=== PATIENT | male | born 1990 ===

== ENCOUNTER 2022-08-31 14:26 | Outpatient (CLI) | payer MEDICAID, SELFPAY ==
--- NOTE | 2022-08-31 | DI.CT_ITS ---
Exam(s) CT UPPER EXTREMITY LT W EXAM: CT UPPER EXTREMITY LT W CLINICAL HISTORY: S/P CARPAL TUNNEL SURGERY,PAIN,SWELLING,? INFECTION OR FLUID COLLECTION. TECHNIQUE: Imaging Protocol: Axial computed tomography images with coronal and sagittal reformatted images were created and reviewed. CONTRAST MATERIAL: Intravenous: Omnipaque 350. Contrast Volume: 100 ML COMPARISON: No exams were available for comparison FINDINGS: Bones: The osseous structures and articular surfaces are intact. Bony alignment is satisfactory. N o cellulitic or osteomyelitic changes are identified. There is no evidence of joint space narrowing or cystic degeneration seen. No lytic or sclerotic lesions are identified. Soft Tissues: Normal. No focal fluid collection is seen. Enhancement: No abnormal enhancement is identified. No findings to suggest an abscess. IMPRESSION: No bone or joint abnormality is identified. No focal fluid collection is seen to suggest an abscess. RADIATION DOSE DELIVERED: 197.97mGy.cm Total DLP 197.97mGy.cm Total DLP DATA REPOSITORY: All CT scans at this facility are submitted to the National Radiology Data Registry (NRDR) Dose Index Registry (DIR) with the [employer] (ACR). RADIATION OPTIMIZATION: All CT scans at this facility use at least one of these dose optimization te chniques: automated exposure control; mA and/or kV adjustment per patient size (includes targeted exa ms where dose is matched to clinical indication); or iterative reconstruction.
--- OUTSIDE RECORDS SUMMARY | 2022-08-31 14:31 | XMS_ITS | CCD ---
:1990 Author Care Team Providers Name Role Phone JOELLE JOHN Attending Physician Unavailable RADHA HARPER Er Physician 1 Unavailable JUS Burciaga Registered Nurse Unavailable Vital Signs Vital Sign Value Unit Date/Time Recent/Initial? BMI (Body Mass Index) 26.7 kg/m^2 01/05/2022 16:27 In itial VS Weight Measured 180.78 lbs 01/05/2022 16:27 Initial VS Height 69 in 01/05/2022 16:27 Initial VS BSA (Body Surface Area) 2 m^2 01/05/2022 16:27 Initial VS BP Systolic 124 mmHg 01/05/2022 16:27 Initial VS BP Diastolic 82 mmHg 01/05/2022 16:27 Initial VS Respiratory Rate 20 bpm 01/05/2022 16:27 Initial VS Heart Rate 84 bpm 01/05/2022 16:27 Initial VS O2 % BldC Oximetry 95 % 01/05/2022 16:27 Initi al VS Body Temperature 36.6 degrees 01/05/2022 16:27 Initial VS Allergies Allergy Code Allergy Type Reaction Status No Known Drug Allergies 0 No known drug allergies Active Procedures Unknown or Not Available. History of Immunizations Unknown or Not Available. Problems Problem Code Start Date Resolved Date Status Blood in stool 396091252 Active Results Unknown or Not Available. Active Medications Medications Administered During Visit Medication Dose Units Frequency Route Date/Time of L ast Dose LIDOCAINE VISCOUS 2% 15ML UD 30 ML X1 PO 01/05/2022 16:49 Encounters Encounter Diagnosis Diagnosis Code Start Date Periapical abscess without sinus K047 022 Social History Smoking Status Code Start Date End Date Never smoker [id number] Patient Decision Aids Unknown or Not Available. Discharge Instructions You were admitted to [facility] on 01/05/2022 16:22 with a principal diagnosis of Periapical abscess without sinus You were discharged from [facility] on 01/05/2022 17:00 Should you have any questions prior to d ischarge, please contact a member of your healthcare team. If you have left the ho spital and have any questions, please contact your primary care physician. Chief Complaint and Reason For Visit Chief Complaint Date of Onset DENTAL PAIN Function Status Unknown or Not Available. Plan of Care Unknown or Not Available. Referral/Transition of Care Unknown or Not Available.
--- OUTSIDE RECORDS SUMMARY | 2022-08-31 14:31 | XMS_ITS | CCD ---
:1990 Author Care Team Providers Name Role Phone ATIYA RAMIREZ Attending Physician Unavailable ATIYA RAMIREZ Er Physician 1 Unavailable Unavailable Registered Nurse GALLO Brown Registered Nurse Unavailable Vital Signs Vital Sign Value Unit Date/Time Recent/Initial? BMI (Body Mass Index) 27.98 kg/m^2 01/15/2022 05:57 In itial VS Weight Measured 195 lbs 01/15/2022 05:57 Initial VS Height 70 in 01/15/2022 05:57 Initial VS BSA (Body Surface Area) 2.09 m^2 01/15/2022 05:57 Initial VS BP Systolic 129 mmHg 01/15/2022 05:57 Initial VS BP Diastolic 88 mmHg 01/15/2022 05:57 Initial VS Respiratory Rate 20 bpm 01/15/2022 05:57 Initial VS Heart Rate 74 bpm 01/15/2022 05:57 Initial VS O2 % BldC Oximetry 96 % 01/15/2022 05:57 Initi al VS Body Temperature 35.2 degrees 01/15/2022 05:57 Initial VS BP Systolic 138 mmHg 01/15/2022 08:03 Most Recent VS BP Diastolic 95 mmHg 01/15/2022 08:03 Most Recent VS Respiratory Rate 18 bpm 01/15/2022 08:36 Most Re cent VS Heart Rate 69 bpm 01/15/2022 08:36 Most Recent VS O2 % BldC Oximetry 100 % 01/15/2022 08:36 Most Recent VS Body Temperature 35.6 degrees 01/15/2022 08:36 Most Re cent VS Allergies Allergy Code Allergy Type Reaction Status No Known Drug Allergies 0 No known drug allergies Active Procedures Unknown or Not Available. History of Immunizations Unknown or Not Available. Problems Problem Code Start Date Resolved Date Status Blood in stool [id number] Active Results COMPREHENSIVE METABOLIC PANEL (CMP) - Co llect Date/Time: 01/15/2022 05:55 Test Name Code Test Result Test Units Test Ref Range GLUCOSE 2345-7 119 mg/dL L=70 H=116 BUN 3094-0 11 mg/dL L=6 H=25 CREATININE 2160-0 1.05 mg/dL L=0.67 H=1.17 SODIUM SERUM 2951-2 138 mmol/L L=136 H=145 POTASSIUM SERUM 2823-3 4.0 mmol/L L=3.4 H=5.2 CHLORIDE SERUM 2075-0 102 mmol/L L=96 H=110 CARBON DIOXIDE (CO2) 2028-9 29 mmol/L L=22 H= 34 ANION GAP 35956-8 7.2 mmol/L CALCIUM SERUM 93637-9 8.7 mg/dL L=8.2 H=10.2 BILIRUBIN TOTAL 1975-2 0.4 mg/dL L=0.0 H=1.3 ALK. PHOS. 6768-6 82 U/L L=46 H=116 SGOT (AST) 1920-8 13 U/L L=15 H=37 SGPT (ALT) 1742-6 28 U/L L=12 H=78 TOTAL PROTEIN 2885-2 6.8 gm/dL L=6.0 H=8.0 ALBUMIN 1751-7 3.8 gm/dL L=3.4 H=5.0 AGE 31 years eGFR (non-Afr.Amer.) 91024-2 83 mL/min eGFR (Afr-Spanish) 69650-1 100 mL/min LIPASE* - Collect Date/Time: 01/15/2022 05:55 Test Name Code Test Result Test Units Test Ref Range LIPASE 165 U/L L=73 H=393 CBC W/ DIFFERENTIAL* - Collect Date/Time : 01/15/2022 05:55 Test Name Code Test Result Test Units Test Ref Range WBC 6690-2 13.60 th/cmm L=5.00 H=10.00 NEUT % 81.9 % L=40.0 H=80.0 LYMPH % 9.9 % L=10.0 H=50.0 MONO % 38381-6 5.4 % L=2.0 H=12.0 EOS % 2.0 % L=0.0 H=8.0 BASO % 0.4 % L=0.0 H=3.0 IG % 2514-8 0.4 % L=0.0 H=1.1 NRBC % 19241-3 0.0 % L=0.0 H=0.0 NEUT abs count 751-8 11.2 th/cmm L=1.6 H=8.4 LYMPH abs count 731-0 1.3 th/cmm L=1.5 H=4.0 MONO abs count 742-7 0.7 th/cmm L=0.2 H=1.0 EOS abs count 711-2 0.3 th/cmm L=0.0 H=0.5 BASO abs count 704-7 0.1 th/cmm L=0.0 H=0.2 IG abs count 03047-7 0.1 th/cmm L=0.0 H=0.1 NRBC abs count 59266-3 0.0 mil/cmm L=0.0 H=0.0 RBC 789-8 5.17 mil/cmm L=4.30 H=6.20 HEMOGLOBIN 718-7 15.5 gm/dL L=13.0 H=17.0 HEMATOCRIT 4544-3 46 % L=45 H=52 MCV 787-2 89 fL L=82 H=92 MCH 785-6 30.0 pg L=27.0 H=31.0 MCHC 786-4 33.8 % L=32.0 H=36.0 RDW-SD 788-0 43.0 fL L=39.0 H=49.0 PLATELET COUNT 777-3 199 th/cmm L=150 H=450 URINALYSIS WITH MICRO AND REFLEX CULTUR* - Collect Date/Time: 01/15/2022 08:00 Test Name Code Test Result Test Units Test Ref Range COLLECTION MODE: 25833-3 CLEAN CATCH N/A Color 5778-6 STRAW N/A yellow Appearance 5767-9 CLEAR N/A clear Glucose urine 05332-4 NEGATIVE N/A negative mg/dl Bilirubin 5770-3 NEGATIVE N/A negative Ketones 2514-8 NEGATIVE N/A negative mg/dl Spec gravity 5811-5 1.020 N/A 1.003 - 1.030 pH urine 2756-5 7.0 N/A 5.0 - 7.0 Protein 62249-6 NEGATIVE N/A negative mg/dl Urobilinogen 54840-9 0.2 N/A <or= 1 EU/dl Nitrite. 5802-4 NEGATIVE N/A negative Blood 5794-3 NEGATIVE N/A negative Leukocytes. NEGATIVE N/A negative WBCs. 67320-8 0-5 N/A 0-5 / hpf RBCs none N/A 0-5 / hpf Epith cells none N/A 0-5 / hpf Crystals none N/A none Bacteria none N/A none Mucus none N/A none Casts none N/A none /lpf Active Medications Medications Administered During Visit Medication Dose Units Frequency Route Date/Time of L ast Dose SODIUM CHLORIDE 0.9% 1000ML 1000 ML X1 01/15/2022 06:20 ACETAMINOPHEN INJ IVPB: 1000 MG X1 0 01/15/2022 06:21 1000MG/100ML ONDANSETRON INJ SDV: 4MG/2ML 4 MG X1 IVP 01/15/2022 06:20 KETOROLAC INJ SDV: 30MG/1ML 15 MG X1 IVP 01/15/2022 08:15 Encounters Encounter Diagnosis Diagnosis Code Start Date Noninfective gastroenteritis and colitis, unspecified K529 01/15/2022 Social History Smoking Status Code Start Date End Date Never smoker [id number] Patient Decision Aids Unknown or Not Available. Discharge Instructions You were admitted to [facility] on 01/15/2022 05:49 with a principal diagnosis of Noninfective gastroenteritis and coli tis, unspecified You had the following tests done: URINA LYSIS WITH MICRO AND REFLEX CULTUR* CBC W/ DIFFERENTIAL* COMPREHENSIVE METABOLIC PA MADALYN (CMP) LIPASE* You were discharged from [facility] on 01/15/2022 08:41 Should you have any questions prior to d ischarge, please contact a member of your healthcare team. If you have left the ho spital and have any questions, please contact your primary care physician. Chief Complaint and Reason For Visit Chief Complaint Date of Onset LOWER RIGHT SIDE PAIN VOMITING Function Status Unknown or Not Available. Plan of Care Unknown or Not Available. Referral/Transition of Care Unknown or Not Available.
--- OUTSIDE RECORDS SUMMARY | 2022-08-31 14:31 | XMS_ITS | CCD ---
:1990 Author Care Team Providers Name Role Phone JESSICA BANGURA Attending Physician Unavailable JESSICA BANGURA Er Physician 1 Unavailable INDU James Registered Nurse Unavailable Vital Signs Vital Sign Value Unit Date/Time Recent/Initial? BMI (Body Mass Index) 38.08 kg/m^2 12/15/2021 03:54 In itial VS Weight Measured 195 lbs 12/15/2021 03:54 Initial VS Height 60 in 12/15/2021 03:54 Initial VS BSA (Body Surface Area) 1.94 m^2 12/15/2021 03:54 Initial VS BP Systolic 123 mmHg 12/15/2021 03:54 Initial VS BP Diastolic 84 mmHg 12/15/2021 03:54 Initial VS Respiratory Rate 18 bpm 12/15/2021 03:54 Initial VS Heart Rate 99 bpm 12/15/2021 03:54 Initial VS O2 % BldC Oximetry 100 % 12/15/2021 03:54 Initi al VS Body Temperature 35.6 degrees 12/15/2021 03:54 Initial VS Heart Rate 71 bpm 12/15/2021 04:20 Most Recent VS O2 % BldC Oximetry 96 % 12/15/2021 04:20 Most Recent VS Allergies Allergy Code Allergy Type Reaction Status No Known Drug Allergies 0 No known drug allergies Active Procedures Unknown or Not Available. History of Immunizations Unknown or Not Available. Problems Problem Code Start Date Resolved Date Status Blood in stool 379361627 Active Results REYNALDO COVID RHEONIX* - Collect Date/Aureliano e: 12/15/2021 04:33 Test Name Code Test Result Test Units Test Ref Range Tier- 29612-6 SYMPTOMS N/A SARS COV2 RNA: 03839-1 NEGATIVE N/A REFERENCE RAN GE: NEGAT Active Medications Medications Administered During Visit Medication Dose Units Frequency Route Date/Time of L ast Dose DEXAMETHASONE INJ SDV PF: 10 MG X1 IVP 12/15/2021 04:30 10MG/1ML IBUPROFEN TABLET: 600MG 600 MG X1 PO 0 12/15/2021 04:30 Encounters Encounter Diagnosis Diagnosis Code Start Date Acute pharyngitis due to other specified organisms J028 12/15/2021 Social History Smoking Status Code Start Date End Date Never smoker [id number] Patient Decision Aids Unknown or Not Available. Discharge Instructions You were admitted to [facility] on 12/15/2021 03:44 with a principal diagnosis of Acute pharyngitis due to other specif ied organisms You had the following tests done: KOFFILE Efra COVID RHEONIX* You were discharged from [facility] on 12/15/2021 04:36 Should you have any questions prior to d ischarge, please contact a member of your healthcare team. If you have left the ho spital and have any questions, please contact your primary care physician. Chief Complaint and Reason For Visit Chief Complaint Date of Onset SHORT OF BREATH Function Status Unknown or Not Available. Plan of Care Unknown or Not Available. Referral/Transition of Care Unknown or Not Available.
[2022-08-31] MEDS: Omnipaque 350 MG/ML 100 ML BTL IJ (15:30)
[2022-08-31] MEDS: Normal Saline Flush 10 ML SYR IVP (15:31)
== END 2022-08-31 14:46 ==
LOC: DI 14:29
PROVIDERS: Visit Provider Physician Assistant Medical
DX: G56.02 Carpal tunnel syndrome, left upper limb (principal); Z98.890 Other specified postprocedural states; M25.532 Pain in left wrist; M79.89 Other specified soft tissue disorders
CPT/HCPCS: 73201; J3490